=== PATIENT | male | born 1980 | race Caucasian/White ===

== ENCOUNTER 2017-06-22 09:42 | Emergency (ER) | payer OTHER ==
[2017-06-22 10:32] VITALS: BP 127/80
== END 2017-06-22 11:10 | disposition home or self-care (01) ==
LOC: UCCORT 09:42
DX: J02.9 Acute pharyngitis, unspecified (principal); Z53.21 Procedure and treatment not carried out due to patient leaving prior to being seen by health care provider
CPT/HCPCS: 87651; 99201; G0463

== ENCOUNTER 2018-07-29 09:05 | Emergency (ER) | payer OTHER ==
[2018-07-29 09:54] VITALS: BP 127/79
--- NOTE | 2018-07-29 10:12 | UC ---
Throat Pain/Nasal Amos HPI - HPI Summary HPI Summary: 38 y/o male presents to the urgent care c/o yellowish nasal congestion,sinus pressure and pain, yellowish PND and sore throat for the past 8 days. Pt reports his brother had similar symptoms about 2 weeks ago and he end up taking antibiotics. Then his got sick w/ similar symptoms and now him. Pt states sinus pain and sore throat is 7/10. He has taken Mucinex since he had a dry cough , specially at night time. He feels body aches for the past 2 days. Pt denies fever, wheezing, SOB, chest pain, abdominal pain N/V/D. - History of Current Complaint Chief Complaint: UCRespiratory Stated Complaint: SORE THROAT Time Seen by Provider: 07/29/18 10:06 Hx Obtained From: Patient Onset/Duration: Gradual Onset, Lasting Weeks - 1 week, Still Present, Worse Since - 2 days Severity: Moderate Pain Intensity: 7 - sore throat and sinus pain Pain Scale Used: 0-10 Numeric Cough: Sputum Appears - yellowish Associated Signs & Symptoms: Positive: Dysphagia, Sinus Discomfort, Nasal Discharge - yellowish, Vomiting - 1 episode 2 days ago. Negative: Fever - Epiglottits Risk Factors Epiglottis Risk Factors: Negative - Allergies/Home Medications Allergies/Adverse Reactions: Allergies Allergy/AdvReac Type Severity Reaction Status Date / Time Penicillins Allergy Unknown Unknown Verified 07/29/18 09:53 Reaction Details Home Medications: Home Medications Pseudoephedrine TAB* [Sudafed TAB*] 30 mg PO Q6H PRN 07/29/18 [History Confirmed 07/29/18] guaiFENesin [Mucinex] 1,200 mg PO 07/29/18 [History] PMH/Surg Hx/FS Hx/Imm Hx Previously Healthy: Yes - Pt denies PMHX - Surgical History Surgical History: Yes Surgery Procedure, Year, and Place: WISDOM TEETH EXTRACTIONS - Family History Known Family History: Positive: Cardiac Disease Negative: Hypertension, Diabetes - Social History Occupation: Employed Full-time Lives: With Family Alcohol Use: Weekly Substance Use Type: None Smoking Status (MU): Never Smoked Tobacco Review of Systems All Other Systems Reviewed And Are Negative: Yes Constitutional: Positive: Chills, Other - body aches Skin: Positive: Negative Eyes: Positive: Negative ENT: Positive: Sore Throat, Nasal Discharge - yellowish, Sinus Congestion, Sinus Pain/Tenderness Respiratory: Positive: Cough - productive w/ yellowish phlegm Cardiovascular: Positive: Negative Gastrointestinal: Positive: Negative Genitourinary: Positive: Negative Motor: Positive: Negative Neurovascular: Positive: Negative Musculoskeletal: Positive: Negative Neurological: Positive: Headache Psychological: Positive: Negative Is Patient Immunocompromised?: No Physical Exam - Summary Physical Exam Summary: Vitals: reviewed General: Well developed, well-nourished male patient with NAD. Head and face: Normocephalic and atraumatic, Positive tenderness over the frontal and maxillary sinuses.. Eyes: PERRLA, EOMI x 2. Normal conjunctiva. No eye discharge. ENT: Ears and TM with normal limits. Nose: edematous and erythematous nasal mucosa with with yellowish discharge and erythematous mucosa. Pharynx with erythema, no exudate. positive moderate yellowish PND Neck: Supple, no JVD, no carotid bruits and no lymphadenopathy. Lungs: clear, no rales, no rhonchi, no wheezes. CVS: RRR, S1 and S2 present no murmurs or gallops appreciated. Abdomen: soft nontender with positive bowel sounds. Extremities: no edema noted. Neuro: WNL. Skin: warm and dry Triage Information Reviewed: Yes Vital Signs: Initial Vital Signs Temp 97.9 F 07/29/18 09:49 Pulse 85 07/29/18 09:49 Resp 18 07/29/18 09:49 BP 127/79 07/29/18 09:49 Pulse Ox 100 07/29/18 09:49 Throat Pain/Nasal Course/Dx - Course Course Of Treatment: 38 y/o male presents to the urgent care c/o yellowish nasal congestion,sinus pressure and pain, yellowish PND and sore throat for the past 8 days. Pt reports his brother had similar symptoms about 2 weeks ago and he end up taking antibiotics. Then his got sick w/ similar symptoms and now him. Pt states sinus pain and sore throat is 7/10. He has taken Mucinex since he had a dry cough , specially at night time. He feels body aches for the past 2 days. Pt denies fever, wheezing, SOB, chest pain, abdominal pain N/V/D. Hx obtained. Pt w/ acute bacterial sinusitis and pharyngitis on examination. Rapid strep: negative. Pt PCN allergic. Pt with 1 week of symptoms getting worse. Pt Rx Doxycycline PO and flonase nasal spray. Advised to continue w/ Mucinex and Ibuprofen to alleviate symptoms. Discharge instructions explained to Pt. Advised to Return to the clinic or PCP if symptoms do not improve.Pt understood and agreed with plan of care. - Differential Dx/Diagnosis Differential Diagnosis/HQI/PQRI: Influenza, Mononucleosis, Otitis Media, Pharyngitis, Sinusitis, Tonsillitis, URI Provider Diagnosis: Acute bacterial sinusitis Discharge - Sign-Out/Discharge Documenting (check all that apply): Patient Departure - D/C home All imaging exams completed and their final reports reviewed: No Studies - Discharge Plan Condition: Stable Disposition: HOME Prescriptions: DOXYcycline CAP(*) [DOXYcycline 100MG CAP(*)] 100 mg PO BID #14 cap Fluticasone NASAL SPRAY 50MCG* [Flonase NASAL SPRAY 50MCG*] 2 spray BOTH NARES DAILY #1 btl Patient Education Materials: Sinusitis (ED) Referrals: [facility] [Outside] - 3 Days Additional Instructions: 1- Please increase fluid intake and rest. take full course of antibiotic to avoid resistance. Take yogurt w/ probiotics or Culturelle to protect your GI system. 2-Use Flonase as directed to help drain fluid. Also buy saline drops to clear sinuses. Increase fluid intake, rest and eat well. 3- Continue taking Mucinex PO and Ibuprofen PO to alleviate symptoms of pain and cough 4-Return to the clinic or PCP if symptoms do not improve for further management and treatment - Billing Disposition and Condition Condition: STABLE Disposition: Home
== END 2018-07-29 10:35 | disposition home or self-care (01) ==
LOC: UCEAST 09:05
DX: J01.90 Acute sinusitis, unspecified (principal); B96.89 Other specified bacterial agents as the cause of diseases classified elsewhere; Z88.0 Allergy status to penicillin
CPT/HCPCS: 87651; 99212; G0463